=== PATIENT | male | born 1995 | race Caucasian/White ===

== ENCOUNTER 2019-03-07 21:20 | Emergency (ER) | payer SELFPAY ==
[~2019-03-07] VITALS: Ht 180.3 cm; Wt 104.5 kg
[~2019-03-07 21:20] MED LIST: NOCURR
[2019-03-07] MEDS ORDERED: IBUPROFEN 600 MG TABLET PO ONE (23:00)
[2019-03-07] MEDS ORDERED: DiphenhydrAMINE HCL 25 MG CAPSULE PO ONE (23:00)
[2019-03-08 00:46] VITALS: BP 123/74
== END 2019-03-08 00:50 | disposition home or self-care (01) ==
LOC: EMS 21:21
DX: R06.02 Shortness of breath (principal); J02.9 Acute pharyngitis, unspecified; F17.210 Nicotine dependence, cigarettes, uncomplicated; F12.90 Cannabis use, unspecified, uncomplicated
CPT/HCPCS: 99406